=== PATIENT | female | born 1995 | race Caucasian/White ===

== ENCOUNTER 2023-09-27 16:23 | Outpatient (CLI) | payer BC, SELFPAY | END 2023-09-27 16:24 | disposition home or self-care (01) | PROVIDERS: PCP Family Medicine; Visit Provider Family Medicine | DX: R53.83 Other fatigue (principal); E66.01 Morbid (severe) obesity due to excess calories; F32.A Depression, unspecified; R71.8 Other abnormality of red blood cells; N92.0 Excessive and frequent menstruation with regular cycle | CPT/HCPCS: 80053; 80061; 82306; 82607; 82728; 83540; 83550; 83690; 84443 ==